=== PATIENT | male | born 1980 | race Caucasian/White ===

== ENCOUNTER 2016-04-20 11:11 | Emergency (ER) | payer SELFPAY ==
--- OUTSIDE RECORDS SUMMARY | 2016-04-20 11:21 | XMS REPORT ---
Demographics Preferred Language Unknown Marital Status Unknown Mandaen Affiliation Unknown Race Unknown Ethnic Group UNK Author Author JANELLE MANZANO Organization [employer] Address Unknown Phone Unavailable Care Team Providers Care Binder Folder Operator Name Role Phone JANELLE MANZANO CP Unavailable Allergies, Adverse Reactions, Alerts Substance Reaction Event Type N.K.D.A. Info Not Available Non Drug Allergy Problems No Known Problems Medications Medication Code System Code Instructions Start Date End Date Status Dosage Phentermine HCl [facility] [address]-16 37.5 MG Orally Once a day 1 capsule Results No Known Results Summary Purpose [employer] Submission
[2016-04-20] MEDS ORDERED: CLON0.1T (12:58)
[2016-04-20] MEDS ORDERED: AMIT25TA9 (12:58)
[2016-04-20] MEDS ORDERED: ESCI10TA55 (12:58)
[2016-04-20] MEDS ORDERED: LORA-405 PO (13:46)
== END 2016-04-20 11:50 | disposition left against medical advice (07) ==
LOC: ER 11:16
DX: F41.9 Anxiety disorder, unspecified (principal); Z53.21 Procedure and treatment not carried out due to patient leaving prior to being seen by health care provider

== ENCOUNTER 2016-04-20 12:37 | Emergency (ER) | payer SELFPAY ==
[~2016-04-20] VITALS: Ht 177.8 cm; Wt 93.0 kg
[2016-04-20] MEDS ORDERED: AMIT25TA9 (12:58)
[2016-04-20] MEDS ORDERED: ESCI10TA55 (12:58)
[2016-04-20] MEDS ORDERED: CLON0.1T (12:58)
--- NOTE | 2016-04-20 13:12 | ED Psychosocial ---
General Chief Complaint: Psych/Social Disorder Stated Complaint: ANXIETY ATTACK Nursing Triage Note: patient reports anxiety x 2 weeks Source: patient Exam Limitations: no limitations History of Present Illness Time seen by provider: 13:11 Initial Comments To ER with severe anxiety for one month. States that he's been in a fight with his girlfriend because of his antidepressants giving him side effects of impotency. He states that he's been drinking and has been prescribed Antabuse. Last week he drank while on the Antabuse and went to [facility] in [place] where he had a bunch of labs drawn and was told were all normal. He initially presented emergency room today, was hostile with registration staff and then left without being seen. He returned about an hour later. Timing/Duration: just prior to arrival Severity: moderate Associated Symptoms: anxiety Allergies and Home Medications Allergies Coded Allergies: No Known Drug Allergies (Unverified , 04/20/16) Home Medications Amitriptyline HCl 25 Mg Tablet #60 (Reported) Clonidine HCl 0.1 Mg Tablet #60 (Reported) Escitalopram Oxalate 10 Mg Tablet #30 (Reported) Lorazepam 1 Mg Tablet #9 1 MG PO BID PRN PRN ANXIETY Prescribed by: SANJUANITA JADE on 04/20/16 1346 Constitutional: see HPI EENTM: see HPI Respiratory: no symptoms reported Cardiovascular: no symptoms reported Genitourinary: no symptoms reported Musculoskeletal: no symptoms reported Psychiatric/Neurological: See HPI Anxiety Past [id number] Hx Patient Social History Alcohol Use: Occasionally Uses Recreational Drug Use: No Smoking Status: Current Everyday Smoker Type Used: Cigarettes Recent Foreign Travel: No Contact w/Someone Who Travel: No Recent Infectious Disease Expo: No Recent Hopitalizations: No Surgeries HX Surgeries: No Respiratory Hx Respiratory Disorders: No Cardiovascular Hx Cardiac Disorders: No Neurological Hx Neurological Disorders: No Reproductive System Hx Reproductive Disorders: No Genitourinary Hx Genitourinary Disorders: No Gastrointestinal Hx Gastrointestinal Disorders: No Musculoskeletal Hx Musculoskeletal Disorders: No Endocrine Hx Endocrine Disorders: No HEENT HX ENT Disorders: No Cancer Hx Cancer: No Psychosocial Hx Psychiatric Problems: Yes Behavioral Health Disorders: Anxiety Integumentary HX Skin/Integumentary Disorder: No Blood Transfusions Hx Blood Disorders: No Physical Exam Vital Signs Vital Sign - Last 12Hours 04/20/16 04/20/16 12:53 14:04 Temp 98.2 Pulse 111 Resp 18 B/P 134/93 Pulse Ox 97 O2 Delivery Room Air Capillary Refill : Less Than 3 Seconds General Appearance: WD/WN no apparent distress HEENT: PERRL/EOMI normal ENT inspection Neck: non-tender full range of motion Respiratory: no respiratory distress no accessory muscle use Gastrointestinal: normal bowel sounds non tender soft Neurologic/Psychiatric: alert normal mood/affect oriented x 3 Appearance/Memory: disheveled Behavior/Eye Contact: cooperative good eye contact increased rate of speech other (agitated, states "you gotta give me something, can we hurry up") Thoughts/Hallucinations: no apparent hallucination Skin: normal color warm/dry Progress/Results/Core Measures Results/Orders My Orders Orders-SANJUANITA JADE APRN Alprazolam Tablet (Xanax Tablet) (04/20/16 13:15) Alprazolam Tablet (Xanax Tablet) (04/20/16 13:15) Alprazolam Tablet (Xanax Tablet) (04/20/16 13:13) Medications Given in ED Current Medications Medications Dose Ordered Sig/Liliana Route Start Time Stop Time Status Last Admin Dose Admin Alprazolam 0.5 mg STK-MED ONCE .ROUTE 04/20/16 13:13 04/20/16 13:16 DC 04/20/16 13:16 1 MG Vital Signs/I&O Vital Sign - Last 12Hours 04/20/16 04/20/16 12:53 14:04 Temp 98.2 Pulse 111 99 Resp 18 18 B/P 134/93 Pulse Ox 97 O2 Delivery Room Air Blood Pressure Mean: 107 Departure Communication Progress Notes I spent 25 minutes in the room with the patient discussing his anxiety and stressors. States that he felt well while he was on the Lexapro but had the sexual side effects of he quit. He would be interested in following up with [facility] and I will provide him with a number. He is much less agitated now after the Xanax. States that he has been on Ativan before with good results. I will provide a very short supply of these until he follows up with primary care. He is not suicidal or homicidal. 1400- patient states to me that he did have some alcohol last night and feels intoxicated currently. Speech is not slurred and conversation is appropriate, though I do notice a faint alcohol-like odor on his breath. He was advised not to drive home after being given the Xanax and with his alcohol on board. He then went to his car and drove out of the parking lot. Police were called due to him being a danger to Public Safety driving while intoxicated. Impression Impression: Primary Impression: Anxiety Disposition: HOME, SELF-CARE Condition: Stable Departure-Patient Inst. Decision time for Depature: 13:45 Referrals: ARABELLA LINTON DO (PCP/Family) Primary Care Physician Patient Instructions: Panic Disorder (DC) Add. Discharge Instructions: 1. Medication as directed 2. Call [facility] at [phone] anytime 24 hours a day. They will call you today to schedule an appointment for outpatient follow-up All discharge instructions reviewed with patient and/or family. Voiced understanding. Scripts Lorazepam (Ativan)1 Mg Tablet1 Mg PO BID PRN ANXIETY #9 TAB Prov:SANJUANITA JADE APRN 04/20/16 SANJUANITA JADE APRN Apr 20, 2016 13:12
[2016-04-20] MEDS ORDERED: ALPRAZolam 0.5 MG (XANAX) TAB ONE (13:13)
[2016-04-20] MEDS ORDERED: ALPRAZolam 0.5 MG (XANAX) TAB PO STA (13:15)
[2016-04-20] MEDS ORDERED: ALPRAZolam 1 MG (XANAX) TAB PO SCH (13:15)
[2016-04-20] MEDS ORDERED: LORA-405 PO (13:46)
[2016-04-20 14:04] VITALS: BP 143/98
== END 2016-04-20 14:04 | disposition home or self-care (01) ==
LOC: EDUNIT# 12:37 → ER 12:39
DX: F41.9 Anxiety disorder, unspecified (principal); F10.10 Alcohol abuse, uncomplicated; Z79.899 Other long term (current) drug therapy; F17.210 Nicotine dependence, cigarettes, uncomplicated
CPT/HCPCS: 99283